=== PATIENT | male | born 1995 | race Caucasian/White ===

== ENCOUNTER 2024-01-06 21:14 | Emergency (ER) | payer SELFPAY ==
[~2024-01-06] VITALS: Ht 182.9 cm; Wt 95.3 kg
[2024-01-06 21:18] VITALS: BP 143/89; PULSE 83; RESP 20; TEMP 98.7; O2SAT 98
[2024-01-06 21:27] VITALS: O2SAT 99
[2024-01-06 21:48] LABS: BASOPHILS % (AUTO) 0.4 % (0.0-2.0); EOSINOPHILS # (AUTO) 0.1 K/uL (0-0.4); EOSINOPHILS % (AUTO) 1.1 % (0.0-4.0); HEMATOCRIT 46.9 % (36-52); HEMOGLOBIN 15.9 g/dL (12.0-18.0); LYMPHOCYTES # (AUTO) 2.4 K/uL (2.0-11.5); LYMPHOCYTES % (AUTO) 40.8 % (20.5-51.1); MEAN CORPUSCULAR HEMOGLOBIN 30 pg (27-31); MEAN CORPUSCULAR HGB CONC 34 g/dL (33-37); MEAN CORPUSCULAR VOLUME 88.5 fL (80-94); MONOCYTES # (AUTO) 0.3 K/uL (0.8-1.0); MONOCYTES % (AUTO) 5.6 % (1.7-9.3); NEUTROPHILS % (AUTO) 52.1 % (42.2-75.2); PLATELET COUNT (AUTO) 204 K/uL (140-450); RED CELL DISTRIBUTION WIDTH 12.4 % (11.6-13.7); WHITE BLOOD COUNT (AUTO) 5.8 K/uL (4.8-10.8)
[2024-01-06 22:01] LABS: ANION GAP 16.3 (8-16); CALCIUM 8.9 mg/dL (8.5-10.1); CARBON DIOXIDE 23.7 mmol/L (21-32); CREATININE 1.1 mg/dL (0.6-1.3)
[2024-01-06 22:05] LABS: ACETAMINOPHEN 6.2 ug/ml (10-30); ALCOHOL, BLOOD 254 mg/dL (<10)
[2024-01-06 22:07] LABS: SALICYLATE < 2.8 mg/dL (2.8-20.0)
[2024-01-06 22:12] LABS: AMPHETAMINE, URINE NEGATIVE ng/ml (NEG <=1000); BARBITURATE, URINE NEGATIVE ng/ml (NEG <=200); BENZODIAZEPINE, URINE NEGATIVE ng/mL (NEG <=200); CANNABINOID, URINE NEGATIVE ng/mL (NEG <=50); COCAINE, URINE NEGATIVE ng/mL (NEG <=300); OPIATE, URINE NEGATIVE ng/mL (NEG <=2000); PHENCYCLIDINE SCREEN,URINE NEGATIVE ng/mL (NEG <=25)
[2024-01-06] MEDS ORDERED: KETOROLAC 30 MG/ML VIAL IM ONE (22:15)
[2024-01-06] MEDS ORDERED: ACETAMINOPHEN EXTRA STRENGTH 500 MG TAB PO ONE (22:15)
[2024-01-06] MEDS: KETOROLAC 30 MG/ML VIAL IVP ONE (22:43)
[2024-01-06] MEDS ORDERED: NICOTINE TRANSD SYS 14 MG/24 HR PATCH TD ONE (23:27)
[2024-01-06] MEDS: NICOTINE TRANSD SYS 14 MG/24 HR PATCH TD SCH (23:41)
[2024-01-07] MEDS: LIDOCAINE MPF 1% 10 MG/ML VIAL INJ ONE (01:45)
[2024-01-07 03:29] VITALS: BP 126/81; PULSE 66; RESP 18; TEMP 98.1; O2SAT 98
[2024-01-07] MEDS ORDERED: NICOTINE TRANSD SYS 21 MG/24 HR PATCH TD SCH (09:00)
== END 2024-01-07 03:29 | disposition home or self-care (01) ==
LOC: MED 21:14
DX: S51.812A Laceration without foreign body of left forearm, initial encounter (principal); S51.811A Laceration without foreign body of right forearm, initial encounter; X78.1XXA Intentional self-harm by knife, initial encounter; Y93.89 Activity, other specified; Y92.89 Other specified places as the place of occurrence of the external cause; Y99.8 Other external cause status
CPT/HCPCS: 12004; 36415; 80048; 80305; 85025; 86886; 86900; 86901; 90471; 90715; 96374; 99284; G0480; G0482; J1885; J2001